=== PATIENT | male | born 1965 | race Two or more races ===

== ENCOUNTER 2021-08-21 09:03 | Day surgery (SDC) | payer MEDICARE, MEDICAID ==
[2021-08-20 10:40] VITALS: BMI 23.2
[~2021-08-21 09:03] MED LIST: EPINEPHrine 0.3 MG in Ophthalmic Irrigation Solution 500 ML IRR SCH
[2021-08-21] MEDS ORDERED: Cyclopentolate 1% Opth Drop 2 ML BOT ONE (09:38)
[2021-08-21] MEDS ORDERED: Phenylephrine 2.5% Ophth Soln 5 ML BOT ONE (09:38)
[2021-08-21] MEDS ORDERED: Triamcinolone 40 MG/ML VIAL ONE (10:50)
[2021-08-21] MEDS ORDERED: CEFAZOLIN 1 GM VIAL ONE (10:50)
[2021-08-21] MEDS ORDERED: PROPOFOL 200 MG/20 ML VIAL ONE (10:50)
[2021-08-21] MEDS ORDERED: Maxitrol 0.1% Opth Oint 3.5 GM TUBE ONE (10:50)
[2021-08-21] MEDS ORDERED: Lidocaine 4% PF 5 ML AMP ONE (10:50)
[2021-08-21] MEDS ORDERED: Bupivacaine 0.75% 10 ML VIAL ONE (10:50)
[2021-08-21] MEDS ORDERED: Clindamycin/D5W 900 mg/50 ml Premix Bag ONE (11:59)
== END 2021-08-21 12:33 | disposition home or self-care (01) ==
LOC: SDC 09:03
PROVIDERS: ATTEND Ophthalmology Retina Specialist
PROC: 08T43ZZ Resection of Right Vitreous, Percutaneous Approach (ICD-10-PCS; principal; 2021-08-21)
PROC: 08QE3ZZ Repair Right Retina, Percutaneous Approach (ICD-10-PCS; 2021-08-21)
DX: H33.41 Traction detachment of retina, right eye (principal); H43.11 Vitreous hemorrhage, right eye; Z87.891 Personal history of nicotine dependence; Z79.84 Long term (current) use of oral hypoglycemic drugs; Z79.899 Other long term (current) drug therapy
CPT/HCPCS: J0171; J0690; J2704; J3301; J3490